=== PATIENT | male | born 1995 | race Caucasian/White ===

== ENCOUNTER 2021-06-18 20:13 | Emergency (ER) | payer SELFPAY ==
[~2021-06-18] VITALS: Ht 180.3 cm; Wt 90.7 kg
--- NOTE | 2021-06-18 20:30 | NUR ---
Patient ambulatory to bed 2 for evaluation and treatment
--- NOTE | 2021-06-18 20:41 | NUR ---
PT CAME IN TO THE ED WITH COMPLAINT OF SOB WITH WHEEZING FOR 2 DAYS. PT REPORTS HISTORY OF ASTHMA, WITH DIFFICULTY BREATHING. UPON ASSESSMENT LUNG SOUNDS DIMINISHED BILATERALLY. PT DENIES ANY N/V OR DIZZYNESS. PT REPORTS NON-PRODUCTIVE COUGH. SPO2 94% ON RA, RR 21, COLOR PINK NORMAL, BRISK CAP REFILL, NO NASAL FLARING, RETRACTIONS, CHEST MOVEMENT BILATERAL AND EQUAL. PHYSICIAN AT THE BEDISDE FOR EVAL, AWAITING ORDERS.
[2021-06-18 20:42] VITALS: BP_SYST 138
[2021-06-18] MEDS ORDERED: IPRATROPIUM/ALBUTEROL SULFATE 3 ML AMPUL.NEB (DUONEB) INH ONE (20:45)
[2021-06-18] MEDS ORDERED: predniSONE 20 MG TABLET PO ONE (20:45)
--- NOTE | 2021-06-18 21:10 | NUR ---
PT RECEIVED BREATHING TREATMENT WITH RT, REPORTS RELIEF. WILL CONITNUE TO MONITOR
[2021-06-18] MEDS ORDERED: ALBU8.5H8 INH (21:41)
[2021-06-18] MEDS ORDERED: PRED20TA PO (21:41)
--- NOTE | 2021-06-18 22:12 | NUR ---
PT DISCHARGED WITH INSTRUCTIONS TO FOLLOW UP WITH PRIMARY CARE PHYSICIAN WITHIN 3 DAYS, PROVIDED INSTRUCTIONS TO [employer] PRESCRIBED MEDICATIONS FROM PHARMACY. ALL QUESTIONS ANSWERED. PT LEFT IN STABLE CONDITION.
[2021-06-18 22:55] VITALS: BP_SYST 137
== END 2021-06-18 22:02 | disposition home or self-care (01) ==
LOC: SED 20:13
DX: J45.901 Unspecified asthma with (acute) exacerbation (principal); Z79.899 Other long term (current) drug therapy
CPT/HCPCS: 99283; J7512; 94640